=== PATIENT | male | born 1950 | race Caucasian/White ===

== ENCOUNTER 2019-07-20 12:35 | Emergency (ER) | payer MEDICARE, OTHER, SELFPAY ==
[2019-07-20 12:37] VITALS: BP 175/102; PULSE 100; RESP 17; TEMP 36.4; O2SAT 95; BMI 32.9
[2019-07-20 12:52] VITALS: RESP 16
--- NOTE | 2019-07-20 12:56 | ED.VISSUMM ---
- ER Visit Summary Date of Service: 07/20/19 Chief Complaint: Nosebleed] History of Present Illness: The patient is a 68 M [presents to the emergency department with complaint of a nosebleed for the last 3 days. Patient states that he has been having intermittent nosebleeds from the right side of the nose. Yesterday he put a cotton ball with apple cider vinegar on it in the right side and held pressure and it seemed to resolve the issue. Patient woke up this morning and states that he had some bleeding on the pillow so he had blood throughout the night. Patient also started having a small amount of dripping from the right side of the nose around 9 AM, Which eventually stopped. Patient states that he subsequently blew his nose and started bleeding again from the right side of the nose and they were having a hard time stopping the bleeding. Patient is not on any blood thinners other than he does take a baby aspirin daily. Patient also has history of hypertension but states that he has been off his medications for 4 to 5 years as he just has not gone back to his primary care physician states he currently does not have a primary care physician. Patient denies any trauma to his nose. He denies using any [id number]-[id number] nasal sprays. He does have seasonal allergies but has been using [id number] tablets. He does not have history of frequent nosebleeds.] Physical Examination: [HESAGRARIO-PERRLA, EOMI. Cranial nerves II through XII grossly intact. TMs clear. Mucous membranes moist. No adenopathy. Patient had a clip on his nose as I enter the room. After removing the clip I did not appreciate any obvious ongoing bleeding. Did not see an obvious source of the bleeding although he did have some dried blood within the right nasal vault. I used a cotton ball dipped in Shelby solution to the right side of the nose. I had the patient hold constant pressure. Cardiovascular-regular rate and rhythm without murmur or ectopy Lungs-clear to auscultation, chest wall stable without crepitus or subcu emphysema Abdomen-normoactive bowel sounds, soft, nontender, no rebound or rigidity, no peritoneal signs. Extremities-intact ?4, normal range of motion, normal pulses, atraumatic] Test Results: [CBC with differential obtained and was normal] Emergency Department Course and Treatment: [Patient had Jose Roberto solution applied to the right nasal vault and I had him hold pressure for 20 minutes. He had no further bleeding. He had no bleeding from the left side of the nose. After removing the cotton from the right side of the nose there was no bleeding noted and no source of the bleeding was seen. She was observed in the department for another half an hour and ambulated in the department without further bleeding.] Treatment Plan: [She will be referred to ENT for follow-up. Patient advised to hold constant pressure for 20 minutes should the bleeding restart. If bleeding does not stop to return to the emergency department. Will be referred to primary care physician for follow-up as well to manage his hypertension.] Disposition: [Discharged home in stable condition. Patient advised to avoid blowing his nose or picking his nose.] Impression: [Right epistaxis-resolved] This note was generated with [employer] dictation software. It may contain incorrect words, spelling, and punctuation that were not noted in review of the chart prior to signing ED Disposition - Plan for ED Patient: Referrals: Care Physician,No Primary [Primary Care Provider] -
[2019-07-20 13:16] LABS: Absolute Neutrophil Count 4.4 X10^3/uL (2.0-7.7); Basophil# 0.02 X10^3/uL; Basophil% 0.3 % (0-1); Eosinophil# 0.07 X10^3/uL; Eosinophils% 1.1 % (0-5); Hemoglobin 16.5 g/dL (13.0-16.5); Lymphocyte % 20.5 % (19-41); Mean Corp Hgb Conc 35.1 g/dL (32-36); Mean Corpuscular Hgb 32.7 pg (27.0-32.0); Mean Corpuscular Volume 93.1 fL (80-94); Mean Platelet Vol. 9.1 fl (6.2-12.0); Monocyte# 0.51 X10^3/uL; NRBC Flagged by Analyzer 0 % (0-5); Neutrophil # 4.42 X10^3/uL (2.7-7.7); Neutrophil % 69.8 % (47-70); Platelet Count 155 K/mm3 (150-450); RBC Distribution Width CV 12.2 % (11.6-14.6); Red Blood Count 5.05 M/mm3 (4.6-6.2); White Blood Count 6.3 K/mm3 (4.4-11.0)
--- NOTE | 2019-07-20 13:33 | ED.DEP ---
ED Disposition - Plan for ED Patient: Instructions: Nosebleed Prescriptions: Lisinopril [Prinivil] 10 mg PO DAILY #30 tab Transmission Status: Pending to [facility] Referrals: Care Physician,No Primary [Primary Care Provider] - Steven Ryan MD [STAFF PHYSICIAN] - 3-5 Days Don Olson DO [STAFF PHYSICIAN] - 3-5 Days
[2019-07-20] MEDS: Lisinopril 10 MG Tablet PO (13:48)
[2019-07-20 13:56] VITALS: BP 171/81
== END 2019-07-20 13:56 | disposition home or self-care (01) ==
LOC: ED 13:26
PROVIDERS: Emergency Provider Emergency Medicine
DX: R04.0 Epistaxis (principal); I10 Essential (primary) hypertension; Z91.19 Patient's noncompliance with other medical treatment and regimen; Z79.82 Long term (current) use of aspirin; Z72.0 Tobacco use
CPT/HCPCS: 85025; 99284; A4216

== ENCOUNTER → 2019-07-24 10:47 | Outpatient (CLI) | payer MEDICARE, OTHER, SELFPAY ==
[2019-07-20 12:37] VITALS: BMI 32.9
== END ==
PROVIDERS: Referring Provider Registered Nurse; Visit Provider Registered Nurse
DX: R55 Syncope and collapse (principal); R94.31 Abnormal electrocardiogram [ECG] [EKG]
CPT/HCPCS: 84484

== ENCOUNTER 2019-07-24 18:55 | Emergency (ER) | payer MEDICARE, SELFPAY ==
[2019-07-24 18:56] VITALS: BP 158/99; PULSE 81; RESP 16; TEMP 36.2; O2SAT 95; BMI 26.2
--- NOTE | 2019-07-24 19:25 | ED.DCSUM_ITS ---
History of Present Illness Chief Complaint: Nosebleed Informant: Patient Onset: Weeks - 1 Context: Sudden Onset - spontaneous Timing: Intermittent - started again 30-45 min CLINICAL TRIALS NURSE Quality: oozing Location: right nostril Current Severity: Mild Maximum Severity: Moderate Worsened by: unk Relieved by: holding pressure Associated Symptoms: none Narrative: Patient takes baby aspirin, he stopped about 1 week ago. He was seen in the ER and had some cauterization, then seen at ENT Dr. Cid and had some cauterization, now he is having persistent recurrent bleeding from the same area. Not swallowing significant amounts of blood although some when he tilts his head back. No symptoms of anemia. 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 Denies: Bilateral ear pain, Sore throat Cardiovascular: Denies: Chest pain, Palpitations Respiratory: Denies: Dyspnea, Cough, Dyspnea on exertion Gastrointestinal: Denies: Abdominal pain, Nausea, Vomiting, Diarrhea, Melena, Hematochezia Skin: Denies: Rash, Wounds Neurological: Denies: Headache, Weakness, Numbness Physical Exam Vital Signs/Narrative: Vital Signs Temp Pulse Resp BP Pulse Ox 07/24/19 18:56 97.1 F L 81 16 158/99 H 95 Inital Vital Signs reviewed: Yes General: Well nourished, Well developed, No Acute Distress Head: Normocephalic, Atraumatic Eyes: Perrl, EOMI ENT: Moist mucous membranes, - - Blood throughout anterior right naris with mildly active bleeding, clear on the left. No significant posterior oropharyngeal blood/bleeding. Neck: Supple, Nontender Skin: Normal color, No rash, No Trauma Neurological: Alert, Oriented x3, Cranial nerves II-XII grossly intact, Normal Strength, Normal Sensation, Normal Gait Psychological: Normal affect, Normal Mood Diagnostic/Tx/Re-eval - Medical Decision Making Vital signs are stable, no symptoms of anemia, I do not think he needs new blood work today. He stopped his aspirin a week ago. Packing was placed to control bleeding, it resulted in good hemostasis. He did have some blood in his mouth and teeth. There is no obvious source of this although he is awful appearing dentition. After placing the packing and rinsing his mouth with water, there was no blood or bleeding, and this did not recur so I suspect it all came from his nose. Advised to follow-up with his ENT doctor. Procedures Procedure(s): Epistaxis control-patient had good hemostasis with clamping his nose however bleeding restarted quickly upon letting ago. Given the recurrence recently, I placed Jose Roberto mix in his nose, 2 cc placed by syringe, and held by the patient after he blew his nose and expelled all of the clots and blood that he could, with good patency of the nasal airway. I then placed a short Merocel packing and clamped him for half an hour. Afterwards, bleeding was well controlled. No complications, tolerated well. ED Disposition - Plan for ED Patient: Disposition: Home or Assisted Living Diagnosis: Acute anterior epistaxis Instructions: Nosebleed Referrals: Chuck Ryan MD [STAFF PHYSICIAN] - 2 Days (call tomorrow for recommendations)
[2019-07-24] MEDS: Mixture 30 ML Bottle 5 ML TOPICAL (20:17)
[2019-07-24 21:25] VITALS: BP 180/85; PULSE 80; RESP 16; O2SAT 97
--- NOTE | 2019-07-24 21:26 | ED.RN ---
REVIEWED D/C INSTRUCTIONS, FOLLOW UP CARE, AND S/S THAT WOULD WARRANT A RETURN TO THE ED WITH PT. PT VERBALIZED AN UNDERSTANDING AND DENIES FURTHER QUESTIONS FOR THIS RN. PT SKIN P/W/D, RESP EVEN AND UNLABORED, PT A&O X 3, NO DISTRESS NOTED. PT AMBULATED OUT OF ED, GAIT STEADY.
== END 2019-07-24 21:27 | disposition home or self-care (01) ==
PROVIDERS: Emergency Provider Emergency Medicine; PCP Registered Nurse
DX: R04.0 Epistaxis (principal); R55 Syncope and collapse; R94.31 Abnormal electrocardiogram [ECG] [EKG]; I25.10 Atherosclerotic heart disease of native coronary artery without angina pectoris; F17.200 Nicotine dependence, unspecified, uncomplicated; I10 Essential (primary) hypertension
CPT/HCPCS: 30901; 84484; 99282; A4216

== ENCOUNTER 2019-07-25 09:42 | Emergency (ER) | payer MEDICARE, OTHER, SELFPAY ==
[2019-07-24 18:56] VITALS: BMI 26.2
[2019-07-25 09:44] VITALS: BP 141/91; PULSE 90; RESP 17; TEMP 36.1; O2SAT 94; BMI 26.2
--- NOTE | 2019-07-25 10:06 | ED.DCSUM_ITS ---
History of Present Illness Informant: Patient, Family Onset: Days - 5 days Context: Gradual Onset Timing: Continuous Quality: ozzing blood Location: right nostril Current Severity: Mild Maximum Severity: Severe Worsened by: nothing Relieved by: nothing Associated Symptoms: denies Narrative: 68-year-old male presents with nosebleed. This is his third ER visit this week he was seen here 5 days ago and again yesterday. He had a Merocel backing placed yesterday but he states he is still having some very mild oozing of blood around the packing. He is not on blood thinners. He is not have a headache. No other symptoms of bleeding. He denies any upper respiratory symptoms or sore throat cough fevers or congestion. He denies any other review of systems at this time Prior similar symptoms: Yes Recent Illness/Hospitalization: No <Yannick Stanley - Last Filed: 07/25/19 10:25> <Sidra Aguilar - Last Filed: 07/25/19 10:36> Chief Complaint: Nosebleed Past Medical History Prior records reviewed: Yes Past Medical History: - - HTN, HPL, GERD Surgical History: appendectomy, colectomy, - Lives: With Family Smoking Status: Current every day smoker Alcohol: Occasional Drugs: None <Yannick Stanley - Last Filed: 07/25/19 10:25> <Sidra Aguilar - Last Filed: 07/25/19 10:36> - Allergies and Home Meds Allergies/Adverse Reactions: Allergies No Known Allergies Allergy (Verified 07/25/19 09:43) Primary Care Physician: Chuck Ryan MD [STAFF PHYSICIAN] - Deidra Mays NP-C [Primary Care Provider] - Review of Systems All systems negative except as indicated General: Denies: Chills, Fever, Sweats Eyes: Denies: Visual changes - bilaterally, Diplopia ENT: Reports: - - epistaxis. Denies: Rhinorrhea, Sore throat Cardiovascular: Denies: Chest pain, Palpitations Respiratory: Denies: Dyspnea, Cough, Dyspnea on exertion Gastrointestinal: Denies: Abdominal pain, Nausea, Vomiting, Diarrhea, Melena, Hematochezia Genitourinary: Denies: Dysuria, Hematuria, Frequency Musculoskeletal: Denies: Back pain, Extremity Pain Skin: Denies: Rash, Wounds Neurological: Denies: Headache, Weakness, Numbness Hematologic: Denies: Easy bruising, Easy bleeding <Yannick Stanley - Last Filed: 07/25/19 10:25> Physical Exam Vital Signs/Narrative: Vital Signs Temp Pulse Resp BP Pulse Ox 07/25/19 09:44 96.9 F L 90 17 141/91 H 94 Inital Vital Signs reviewed: Yes General: Well nourished, Well developed, No Acute Distress Head: Normocephalic, Atraumatic Eyes: Perrl, EOMI ENT: Moist mucous membranes, TM's clear, - - merocel packing in place. no active bleeding seen. no blood in posterior oropharynx. no bleeding from left nostril.. Negative for: Sinus tenderness Neck: Supple, Nontender Cardiovascular: Regular rate, Regular rhythm, No murmurs Respiratory: No distress, CTA bilaterally, Chest nontender Abdomen: Soft, Nontender, Nondistended, Normal bowel sounds Back: Nontender, Normal Inspection Extremities: Nontender, No edema Skin: Normal color, No rash Neurological: Alert, Oriented x3, Cranial nerves II-XII grossly intact, Normal Strength, Normal Sensation Psychological: Normal affect, Normal Mood <Yannick Stanley - Last Filed: 07/25/19 10:25> Vital Signs/Narrative: Vital Signs Temp Pulse Resp BP Pulse Ox 07/25/19 09:44 96.9 F L 90 17 141/91 H 94 <Sidra Aguilar - Last Filed: 07/25/19 10:36> Diagnostic/Tx/Re-eval - Medical Decision Making Patient was not actively bleeding on exam but he states throughout the course of the night he was getting bleeding around the packing and I removed the packing and there was no active bleeding but there was blood in his nostril I cleansed his nasal cavity and use some cotton balls with Afrin and then placed a Rhino Rocket 5.5 cm with resolution of bleeding. On repeat evaluation the patient's doing well he has not had any further bleeding I advised him to use Tylenol as needed for pain and he has an appointment on Sunday with his ENT where the packing will be removed. <Yannick Stanley - Last Filed: 07/25/19 10:25> - Medical Decision Making Patient seen and evaluated with physicians food and beverage assistant. Patient presents with recurrent bleeding from the right nare. He was seen yesterday and had Merisel packing placed. He reportedly called his ENT office and was referred to the emergency room. Patient sitting upright in bed in no acute distress. Right nares been packed with a Rhino Rocket prior to my evaluation. There is mild pink-tinged saline drainage, but no active bleeding. Patient is to follow-up on Sunday as scheduled with his ENT. Disposition: Discharge <Sidra Aguilar - Last Filed: 07/25/19 10:36> Procedures Procedure(s): merocel packing was removed. Patient blew his nose and I did another inspection there was some mild oozing of blood no pulsatile bleeding or blood clots. Afrin with cotton ball used repeat inspection still minor oozing and placed a 5.5 cm Rhino Rocket and inflated with approximately 5 cc of air. Tolerated well <Yannick Stanley - Last Filed: 07/25/19 10:25> ED Disposition <Yannick Stanley - Last Filed: 07/25/19 10:25> <Sidra Aguilar - Last Filed: 07/25/19 10:36> - Plan for ED Patient: Disposition: Home or Assisted Living Diagnosis: Epistaxis, recurrent, Benign essential HTN Instructions: ED Epistaxis Adult Referrals: Deidra Mays NP-C [Primary Care Provider] - Chuck Ryan MD [STAFF PHYSICIAN] -
== END 2019-07-25 10:39 | disposition home or self-care (01) ==
PROVIDERS: Emergency Provider Physician Assistant Medical; PCP Registered Nurse
DX: R04.0 Epistaxis (principal); I10 Essential (primary) hypertension; F17.200 Nicotine dependence, unspecified, uncomplicated
CPT/HCPCS: 99282

== ENCOUNTER 2019-07-25 22:59 | Emergency (ER) | payer MEDICARE, OTHER, SELFPAY ==
[2019-07-25 09:44] VITALS: BMI 26.2
[2019-07-25 23:00] VITALS: BP 154/113; PULSE 90; RESP 20; TEMP 36.2; O2SAT 98; BMI 25.9
--- NOTE | 2019-07-25 23:33 | ED.VIS.GEN ---
History of Present Illness Chief Complaint: Nosebleed Informant: Patient Onset: Days - 8 Timing: Intermittent Quality: dripping occasionally Location: left side now that nasal tampon in right side Current Severity: Mild Maximum Severity: Mild Worsened by: lying down Relieved by: unknown Associated Symptoms: none Narrative: Patient has been here multiple times for nose bleeding. I saw them last night and put a Merocel packing in the right nostril anteriorly. I spent a significant amount of time talking to them about the possibility of dripping, and he had a small amount here prior to discharge so I gave him a gauze drip tray. There was a scant amount of blood on it when he left. Apparently he returned this morning, and had it replaced with a rapid Rhino inflatable because it continued to ooze. Now, he has had mild dripping from the left side at times throughout the day, and when he lies down, he is feeling some of this dripping going back, and he is spitting out mucus that has a small amount of blood in it. He is spitting out no blood clots. He can breathe okay although it is keeping him from sleeping. He denies any bleeding from the right side where there is a rapid Rhino now. It is notable that the patient seems less concerned about this than his , who is very upset about being here in the ER again because he continues to have dripping/bleeding. They called ear nose throat as advised, and although 2 days after the initial packing would have placed them on a Sunday, they were advised to come on Sunday to the office for reevaluation and possibly packing removal. He has had no fevers, chest pain, dyspnea, lightheadedness, symptoms of anemia, vomiting. 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 (5) Benign essential HTN Status: Chronic Past Medical History - Allergies and Home Meds Allergies/Adverse Reactions: Allergies No Known Allergies Allergy (Verified 07/25/19 09:43) Primary Care Physician: Chuck Ryan MD [STAFF PHYSICIAN] - 07/28/19 Surgical History: appendectomy, colectomy, - Lives: Spouse/ Significant Other Smoking Status: Current every day smoker Review of Systems General: Denies: Chills, Fever, Sweats ENT: Reports: Rhinorrhea - w/ some blood Cardiovascular: Denies: Chest pain, Palpitations Respiratory: Denies: Dyspnea, Cough, Dyspnea on exertion Gastrointestinal: Denies: Nausea, Vomiting Skin: Denies: Rash, Wounds Neurological: Denies: Headache, Weakness, Numbness Physical Exam Vital Signs/Narrative: Vital Signs Temp Pulse Resp BP Pulse Ox 07/25/19 23:00 97.1 F L 90 20 H 154/113 H 98 Inital Vital Signs reviewed: Yes General: Well nourished, Well developed, No Acute Distress Head: Normocephalic, Atraumatic Eyes: Perrl, EOMI ENT: Moist mucous membranes, No rhinorrhea Neck: Supple, Nontender Cardiovascular: Regular rate, Regular rhythm Respiratory: No distress, CTA bilaterally Extremities: Nontender, No edema Skin: Normal color, No rash, No Trauma Neurological: Alert, Oriented x3, Cranial nerves II-XII grossly intact, Normal Strength, Normal Sensation, Normal Gait Psychological: Normal affect, Normal Mood Diagnostic/Tx/Re-eval - Medical Decision Making I do not think this patient is having significant bleeding that needs repacking or added packing to the other side. I think he is having essentially dripping from the posterior aspect of rapid Rhino pack that is and out. I had him blow his nose and evacuate the contents of the left side, and then I injected [address] Cid mix that he aspirated back. He immediately felt better. I observed him for another hour. He had no more bleeding or dripping. He is comfortable going home. We discussed reasons to return, but I think removing the packing would start the process over, and I think adding a packing to the left side would make it harder for him to breathe, and may confuse the situation if he continues to drip down the back of the packing, because then he would be spitting out blood and more likely to come back. I explained all of this at length and he and the , the latter of which is extremely frustrated about all of these visits, and prompts most of them, are satisfied and much comfortable going home now and dealing with any minor blood dripping from where the packing is, anteriorly or posteriorly. ED Disposition - Plan for ED Patient: Disposition: Home or Assisted Living Diagnosis: Nosebleed Instructions: Nosebleed Referrals: Chuck Ryan MD [STAFF PHYSICIAN] - 07/28/19
[2019-07-25] MEDS: Mixture 30 ML Bottle 5 ML TOPICAL (23:44)
== END 2019-07-26 00:49 | disposition home or self-care (01) ==
PROVIDERS: Emergency Provider Emergency Medicine; PCP Registered Nurse
DX: R04.0 Epistaxis (principal); I10 Essential (primary) hypertension; F17.200 Nicotine dependence, unspecified, uncomplicated; I25.10 Atherosclerotic heart disease of native coronary artery without angina pectoris
CPT/HCPCS: 30905; 99282

== ENCOUNTER → 2021-06-16 | Outpatient (CLI) | payer MEDICARE, SELFPAY ==
--- NOTE | 2021-06-16 15:50 | RAD_ITS ---
STUDY: XR Knee 3 Views 06/16/2021 4:09 PM REASON FOR EXAM: Male, 70 years old. PAIN LT KNEE TECHNIQUE: XR Knee 3 Views LEFT COMPARISON: None FINDINGS: Normal visualized distal femur. Normal visualized proximal tibia and fibula. Normal proximal tibiofibular articulation. Normal medial femorotibial compartment. Normal lateral femorotibial compartment. Normal patellofemoral articulation. The soft tissue structures are unremarkable. RAD/Knee 3 Views IMPRESSION: There are no acute findings. Electronically Signed: Carrington Garner MD at 16:09 EDT ,
== END | disposition home or self-care (01) ==
PROVIDERS: PCP Registered Nurse; Referring Provider Nurse Practitioner Adult Health; Visit Provider Nurse Practitioner Adult Health
DX: M25.562 Pain in left knee (principal)
CPT/HCPCS: 73562

== ENCOUNTER → 2021-07-18 | Outpatient (CLI) | payer MEDICARE, SELFPAY ==
--- NOTE | 2021-07-18 07:10 | MRI_ITS ---
ACR Level 3 findings have been noted. An addendum which confirms receipt of the report will follow. STUDY: MRI LEFT KNEE REASON FOR EXAM: Left knee pain for 3.5 weeks. TECHNIQUE: Standardized fat and water weighted pulse sequences were obtained in all 3 orthogonal planes. COMPARISON: Radiographs 06/16/2021. FINDINGS: There is a complex tear of the posterior horn of the medial meniscus extending to the root (proton-density sagittal images 9-19; T2 coronal images 12, 13). Normal hyaline cartilage of the medial femorotibial compartment. There is a subchondral stress fracture of the medial femoral condyle (T2 sagittal images 8-10) with associated bone edema extending across the midline into the lateral femoral condyle. There is mild periligamentous inflammation of the medial collateral ligament (T2 coronal image 18). Normal distal semimembranosus, gracilis and semitendinosus tendons. There is a small tear of the anterior horn of the lateral meniscus (proton-density sagittal images 29-32). Normal hyaline cartilage of the lateral femorotibial compartment. Normal proximal tibiofibular articulation. Normal lateral collateral (fibular) ligament. Normal popliteus tendon. Normal biceps femoris tendon. Normal anterior cruciate ligament (ACL). Normal posterior cruciate ligament (PCL). Normal congruent patellofemoral articulation. Normal hyaline cartilage of the patellofemoral compartment. Normal medial and lateral patellar retinaculum. Normal visualized quadriceps tendon. There is an enthesophyte at the superior pole of the patella. Normal patellar tendon. Normal Hoffa''s fat pad. There is a minimal volume of fluid in the knee joint. There is a small intra-articular body anterior to the anterior horn of the lateral meniscus (proton-density sagittal image 30) measuring 0.6 cm in length. There is a thin medial patellar plica. There is a popliteal cyst measuring 4.1 cm in length with mild extravasation of fluid (T2 coronal images 3-7). The otherwise visualized osseous structures are unremarkable. MRI/Lower Ext Joint Only (Routine) IMPRESSION: Medial meniscal tear. Subchondral stress fracture of the medial femoral condyle. Small lateral meniscal tear. Mild periligamentous inflammation of the medial collateral ligament. Small intra-articular body. Popliteal cyst with mild extravasation of fluid. Electronically Signed: Shabbir Redmond MD at 9:49 EDT ,
[2021-07-18 07:52] VITALS: BP 134/75; PULSE 85; RESP 18; O2SAT 96
[2021-07-18 08:07] VITALS: BP 132/71; PULSE 85; RESP 18; O2SAT 96
[2021-07-18 08:20] VITALS: BP 132/74; PULSE 85; RESP 16; O2SAT 95
== END | disposition home or self-care (01) ==
LOC: MRI 07:10
PROVIDERS: PCP Nurse Practitioner Adult Health; Referring Provider Physician Assistant; Visit Provider Physician Assistant
DX: S83.242A Other tear of medial meniscus, current injury, left knee, initial encounter (principal); S83.281A Other tear of lateral meniscus, current injury, right knee, initial encounter; X58.XXXA Exposure to other specified factors, initial encounter; M84.352A Stress fracture, left femur, initial encounter for fracture; M71.22 Synovial cyst of popliteal space [Baker], left knee
CPT/HCPCS: 73721